=== PATIENT | female | born 1960 | race Caucasian/White ===

== ENCOUNTER 2017-04-17 09:42 | Emergency (ER) | payer BC ==
[~2017-04-17] VITALS: Ht 162.6 cm; Wt 81.6 kg
--- NOTE | 2017-04-17 10:00 | NUR ---
PT TO ED ROOM 04, BB . C/O NAUSEA, VOMITING, AND DIZZY SINCE LAST NIGHT S/P NASAL SURGERY. A/A/O. AMBULATORY WITH STEADY GAIT. SIDE RAIS LUP. HOB ELEVATED. SEEN AND EVALAUTAED BY ED PROVIDER.
[2017-04-17] MEDS ORDERED: MORPHINE SULFATE INJ 4 MG/ML DISP.SYRIN ONE ×3 (10:16→12:20)
[2017-04-17] MEDS ORDERED: ONDANSETRON HCL/PF 4 MG/2 ML VIAL ONE ×2 (10:16→11:05)
--- NOTE | 2017-04-17 10:20 | NUR ---
MEDICATIONS GIVEN ORDERED
[2017-04-17 10:27] LABS: CALCIUM, SERUM 9.1 mg/dL (8.5-10.1); CREATININE 0.8 mg/dL (0.6-1.3); POTASSIUM 3.5 mmol/L (3.5-5.1)
[2017-04-17] MEDS ORDERED: MORPHINE SULFATE INJ 2 MG/ML DISP.SYRIN IV ONE ×3 (10:30→12:30)
[2017-04-17] MEDS ORDERED: ONDANSETRON HCL/PF 4 MG/2 ML VIAL IVP ONE (10:30)
[2017-04-17] MEDS ORDERED: IV NS 0.9% 1,000 ML BAG IV ONE ×2 (10:30)
[2017-04-17 10:31] LABS: BASOPHILS % (AUTO) 0.4 % (0.0-2.0); EOSINOPHILS # (AUTO) 0.1 /CMM (0.0-0.7); EOSINOPHILS % (AUTO) 0.4 % (0.0-6.0); HEMATOCRIT 39 % (33-45); HEMOGLOBIN 13.2 g/dL (11.5-14.8); LYMPHOCYTES # (AUTO) 1.1 /CMM (0.8-4.8); LYMPHOCYTES % (AUTO) 9.1 % (20.0-44.0); MEAN CORPUSCULAR HEMOGLOBIN 30 PG (26.0-33.0); MEAN CORPUSCULAR HGB CONC 34 g/dl (31.0-36.0); MEAN CORPUSCULAR VOLUME 88 fL (82-100); MONOCYTES # (AUTO) 0.7 /CMM (0.1-1.30); MONOCYTES % (AUTO) 5.9 % (2.0-12.0); NEUTROPHILS # (AUTO) 10.2 /CMM (1.8-8.9); NEUTROPHILS % (AUTO) 84.2 % (43.0-81.0); PLATELET COUNT (AUTO) 360 /CMM (150-450); RDW COEFFICIENT OF VARIATION 14.1 (11.5-15.0); WHITE BLOOD COUNT (AUTO) 12.1 K/uL (4.3-11.0)
[2017-04-17 10:33] LABS: ALBUMIN 3.7 g/dL (3.4-5.0); BILIRUBIN,TOTAL 0.7 mg/dL (0.2-1.0); TOTAL PROTEIN, SERUM 7.7 g/dL (6.4-8.2)
[2017-04-17] MEDS ORDERED: ONDANSETRON HCL/PF 4 MG/2 ML VIAL IV ONE (11:00)
--- NOTE | 2017-04-17 11:59 | NUR ---
Patient is resting comfortably in bed with eyes closed. Easily aroused. VSS
[2017-04-17] MEDS ORDERED: MORPHINE SULFATE INJ 4 MG/ML DISP.SYRIN IV ONE (12:30)
--- NOTE | 2017-04-17 12:57 | NUR ---
Patient discharged to home in stable condition. Written and verbal after care instructions given. Patient verbalizes understanding of instruction.IV removed. Catheter intact and site benign. Pressure and 4x4 applied to site. No bleeding noted. ambulatory with a steady gait.
[2017-04-17 12:59] VITALS: BP 125/74
== END 2017-04-17 13:00 | disposition home or self-care (01) ==
LOC: ER 12:02
DX: R11.2 Nausea with vomiting, unspecified (principal); E86.0 Dehydration; F90.9 Attention-deficit hyperactivity disorder, unspecified type; E03.9 Hypothyroidism, unspecified; Z98.890 Other specified postprocedural states
CPT/HCPCS: 36415; 80053; 83690; 85025; 96361; 96374; 96375; 96376; 99284; A4606; J2270 ×3; J2405 ×2; J7030; Z7610